=== PATIENT | female | born 1950 | race Caucasian/White ===

== ENCOUNTER → 2016-12-06 | Outpatient (REF) | payer MEDICARE, BC | LOC: M LAB REF 09:03 | PROVIDERS: ATTEND Physician Assistant | DX: H60.8X2 Other otitis externa, left ear (principal) ==

== ENCOUNTER 2020-04-25 21:01 | Observation (INO) | payer MEDICARE, BC ==
[~2020-04-25] VITALS: Ht 165.1 cm; Wt 56.8 kg
[2020-04-25] MEDS: traZODone 100 MG TAB PO SCH (21:00)
[2020-04-25] MEDS ORDERED: ATOR1TAB19 PO (21:20)
[2020-04-25] MEDS ORDERED: ATEN25TA PO (21:20)
[2020-04-25] MEDS ORDERED: TRAZ-257 PO (21:20)
[2020-04-25] MEDS ORDERED: AMLO2.5T3 PO (21:20)
[2020-04-25] MEDS ORDERED: VENL75TA2 PO (21:20)
[2020-04-25] MEDS ORDERED: ISOVUE-370 76% 100ML VIAL As Ordered ONE (22:59)
[2020-04-25 23:06] LABS: BASO # 0.1 10^3/uL (0.0-0.2); BASO % 0.7 % (0.0-1.0); EOS # 0.2 10^3/uL (0.0-0.5); EOS % 2.9 % (0.0-3.0); HEMATOCRIT 36.5 % (36.0-47.0); HEMOGLOBIN 11.8 g/dl (12.0-15.5); LYMPH # 1.4 10^3/uL (1.5-5.0); LYMPH % 18.9 % (24.0-44.0); MEAN CORPUSCULAR HEMOGLOBIN 30.5 pg (27.0-33.0); MEAN CORPUSCULAR HGB CONC 32.3 g/dl (32.0-36.5); MEAN CORPUSCULAR VOLUME 94.3 fl (80.0-96.0); MONO # 0.8 10^3/uL (0.0-0.8); MONO % 10.4 % (0.0-5.0); NEUTROPHILS # 4.8 10^3/uL (1.5-8.5); NEUTROPHILS % 66.8 % (36.0-66.0); PLATELET COUNT, AUTOMATED 297 10^3/uL (150-450); RED BLOOD COUNT 3.87 10^6/uL (4.00-5.40); WHITE BLOOD COUNT 7.2 10^3/uL (4.0-10.0)
--- NOTE | 2020-04-25 23:36 | REPVR ---
PROCEDURE INFORMATION: Exam: CT Head Without Contrast Exam date and time: 04/25/2020 10:25 PM Age: 70 years old Clinical indication: Injury or trauma; Fall; Concussion/head injury; Consciousness not specified; Additional info: Fall from horse, nausea TECHNIQUE: Imaging protocol: Computed tomography of the head without contrast. Radiation optimization: All CT scans at this facility use at least one of these dose optimization techniques: automated exposure control; mA and/or kV adjustment per patient size (includes targeted exams where dose is matched to clinical indication); or iterative reconstruction. COMPARISON: No relevant prior studies available. FINDINGS: Brain: Diffuse moderate cerebral age related volume loss. Moderate patchy low attenuation in the white matter compatible with moderate chronic small vessel ischemic disease. No midline shift, mass, fluid collection, or evidence of hemorrhage. Cerebral ventricles: Ventricular enlargement proportional to volume loss. Bones/joints: Unremarkable. No acute fracture. Paranasal sinuses: Visualized sinuses are unremarkable. No fluid levels. Mastoid air cells: Visualized mastoid air cells are well aerated. Soft tissues: Unremarkable. IMPRESSION: Moderate involutional changes, no acute intracranial abnormality. Electronically signed by: Yefri Louis On 04/25/2020 23:36:01 PM
--- NOTE | 2020-04-25 23:37 | REPVR ---
PROCEDURE INFORMATION: Exam: CT Cervical Spine Without Contrast Exam date and time: 04/25/2020 10:25 PM Age: 70 years old Clinical indication: Neck pain; Additional info: Fall from horse, nausea TECHNIQUE: Imaging protocol: Computed tomography images of the cervical spine without contrast. Radiation optimization: All CT scans at this facility use at least one of these dose optimization techniques: automated exposure control; mA and/or kV adjustment per patient size (includes targeted exams where dose is matched to clinical indication); or iterative reconstruction. COMPARISON: No relevant prior studies available. FINDINGS: Bones/joints: No acute fracture. Normal alignment. Discs/Spinal canal/Neural foramina: Degenerative disc and joint disease greatest at C3-C4 with moderate spinal and moderate to severe right greater than left foraminal stenosis. Soft tissues: Unremarkable. Lungs: Lung apices are normal. IMPRESSION: No acute findings. Electronically signed by: Yefri Louis On 04/25/2020 23:37:40 PM
[2020-04-25 23:40] LABS: ALBUMIN 3.9 GM/DL (3.2-5.2); ALT/SGPT 25 U/L (12-78); BILIRUBIN,DIRECT 0.1 MG/DL (0.0-0.2); BILIRUBIN,TOTAL 0.3 MG/DL (0.2-1.0); CK-MB VALUE MASS 1.3 NG/ML (<3.6); CPK CREATINE PHOSPHOKINASE 47 U/L (26-192); LIPASE 255 U/L (73-393); MB/CK RELATIVE INDEX 2.77 (< OR =4); TOTAL PROTEIN 7.4 GM/DL (6.4-8.2); TROPONIN I < 0.02 NG/ML (< 0.10)
--- NOTE | 2020-04-25 23:58 | REPVR ---
PROCEDURE INFORMATION: Exam: CT Abdomen And Pelvis With Contrast Exam date and time: 04/25/2020 10:25 PM Age: 70 years old Clinical indication: Injury or trauma; Fall; Blunt; Epigastric; Additional info: Nausea, vomiting, epigastric pain, lowback, left hip pain TECHNIQUE: Imaging protocol: Computed tomography of the abdomen and pelvis with intravenous contrast. Radiation optimization: All CT scans at this facility use at least one of these dose optimization techniques: automated exposure control; mA and/or kV adjustment per patient size (includes targeted exams where dose is matched to clinical indication); or iterative reconstruction. Contrast material: ISO; Contrast volume: 100 ml; Contrast route: INTRAVENOUS (IV); COMPARISON: No relevant prior studies available. FINDINGS: Mediastinal space: There is a small hiatal hernia. Liver: Small cyst in the dome of the liver. The liver is otherwise unremarkable. Gallbladder and bile ducts: Normal. No calcified stones. No ductal dilation. Pancreas: Normal. No ductal dilation. Spleen: Normal. No splenomegaly. Adrenal glands: Normal. No mass. Kidneys and ureters: Normal. No hydronephrosis. Stomach and bowel: There is colonic diverticulosis without evidence of diverticulitis. The small bowel is unremarkable. Appendix: No evidence of appendicitis. Intraperitoneal space: Unremarkable. No free air. No significant fluid collection. Vasculature: Unremarkable. No abdominal aortic aneurysm. Lymph nodes: Unremarkable. No enlarged lymph nodes. Urinary bladder: Unremarkable as visualized. Reproductive: There has been prior hysterectomy. Bones/joints: There are advanced degenerative changes in the spine and pelvis. Changes of prior left hip arthroplasty are noted. Nondisplaced fracture of the left sacral ala at the SI joint (image 74, series 202). No SI joint diastasis or ankylosis. Remainder of the sacrum appears to be intact. Soft tissues: Unremarkable. IMPRESSION: 1. Nondisplaced left sacral ala fracture. No other acute fractures or malalignment. 2. Advanced degenerative spondylosis. 3. Colonic diverticulosis without evidence of diverticulitis. 4. Small hiatal hernia. Electronically signed by: Chacho Mercedes On 04/25/2020 23:57:32 PM
[2020-04-26] MEDS ORDERED: NORCO, ANEXSIA 5/325MG TABLET (HYDROcodone/ACETAMINOPHEN) PO ONE (01:30)
[2020-04-26] MEDS ORDERED: ONDANSETRON 4MG/2ML VIAL IV ONE (01:30)
[2020-04-26] MEDS ORDERED: ASPI81TA26 PO (02:11)
--- NOTE | 2020-04-26 03:56 | HPEPDOC ---
[facility] Medical History & Physical Date of Admission Apr 26, 2020 Date of Service: Apr 26, 2020 History and Physical CHIEF COMPLAINT: Dizziness HISTORY OF PRESENT ILLNESS: 70-year-old female with a past medical history of hypertension presents to the ED with dizziness as well as epigastric pain and nausea/vomiting. Regarding her dizziness patient tells me that she fell off of her horse approximately 10 days ago onto her back and head and since that time she's been having intermittent dizziness on and off. Tells me that prior to the ED she was feeling very dizzy at home which prompted her to come in. At the time she was seen she tells me she's no longer feeling dizzy however she does still have associated gait instability that always follows her dizziness episodes and has not completely resolved. Tells me that she been able to walk to the bathroom unassisted with no trouble but not feeling completely normal Regarding her epigastric pain and associated nausea and vomiting patient tells me that she was taking some Aleve to alleviate her ongoing back pain since the fall and shortly after taking the Aleve is when she felt the onset of nausea vomiting and epigastric pain. Tells me that since then the epigastric pain has resolved and she is no longer nauseous nor has she vomited. In the ED CT head was done which was negative for acute pathology. CT abdomen/pelvis done was negative for acute pathology. She was given Zofran for the nausea/vomiting and Mary Alice for pain. Patient will be admitted to medical unit for observation PAST MEDICAL HISTORY: Hypertension PAST SURGICAL HISTORY: Left hip replacement 2013 Hysterectomy 2000 SOCIAL HISTORY: Drinks 1-2 glasses of wine every few days Denies tobacco use Denies illicit drug use FAMILY HISTORY: Reviewed and noncontributory ALLERGIES: Please see below. REVIEW OF SYSTEMS: 10 point review of systems complete all negative otherwise stated in HPI HOME MEDICATIONS: Please see below. PHYSICAL EXAMINATION: Constitutional: Awake and alert, in no apparent distress ENT: Sclera are clear. Mucosa is moist. Respiratory: Lungs CTA bilaterally. No respiratory distress. No use of accessory muscles. Cardiovascular: RRR S1 and S2 are normal, no murmur Gastrointestinal: Abdomen is soft, non distended, non tender, BS present. Musculoskeletal: No edema. No joint deformities. RUE 5/5, LUE 5/5, BLE 5/5 Neurologic: No focal neurological deficit. Mental Status: A&O x3, normal affect Skin: Warm, dry. Mild vesicular itchy rash around the right upper flank which patient tells me she's been following up with dermatology with no diagnosis yet. LABORATORY DATA: See below. IMAGING: MICROBIOLOGY: Please see below. ASSESSMENT/PLAN 70-year-old female history of hypertension here with some dizziness and nausea/vomiting suspect postconcussion syndrome. Had fall off of course 10 days ago. At this time dizziness has resolved so has the nausea and vomiting. Still has some gait instability. Admitted for observation and evaluation by physical therapy. # Suspect postconcussion syndrome: CT head negative. Recent fall on head 10 days ago. dizziness now resolved. Still with some gait instability, PT/OT eval. ED Dr Montanez spoke with Ortho communication analyst who recommended cane/walker at home, however he preferred the pt admitted for obs. # Nausea/vomiting: now resolved with zofran. onset after taking aleeve. Possible pill induced esophagitis. avoid NSAIDs. Protonix PO. CT abdomen/pelvis negative acute pathology, shows nondisplaced left sacral ala fracture. # nondisplaced left sacral ala fracture: Mary Alice when necessary for pain physical therapy. Consider consulting orthopedics. # Normocytic Anemia: hgb 11.8 on admit. unsure of last c-scope. Fu fecal occult. Fu ferritin, TIBC. # Hypertension: Continue home meds. Monitor and titrate # Hyperlipidemia: Continue statin. No history of CAD or CVA discontinued aspirin. # MDD: continue home meds # High TSH: fu free T4. # DVT prophylaxis: Lovenox A Yousef Hospitalist Vital Signs Vital Signs Date Time Temp Pulse Resp B/P (MAP) Pulse Ox O2 Delivery O2 Flow Rate FiO2 04/26/20 02:29 67 17 98 Room Air 04/26/20 01:58 166/90 04/25/20 21:02 97.6 Laboratory Data Labs 24H Laboratory Tests 2 04/25/20 22:38: Immature Granulocyte % (Auto) 0.3, Neutrophils (%) (Auto) 66.8H, Lymphocytes (%) (Auto) 18.9L, Monocytes (%) (Auto) 10.4H, Eosinophils (%) (Auto) 2.9, Basophils (%) (Auto) 0.7, Neutrophils # (Auto) 4.8, Lymphocytes # (Auto) 1.4L, Monocytes # (Auto) 0.8, Eosinophils # (Auto) 0.2, Basophils # (Auto) 0.1, Nucleated Red Blood Cells % (auto) 0.0, Total Bilirubin 0.3, Direct Bilirubin 0.1, Aspartate Amino Transf (AST/SGOT) 27, Alanine Aminotransferase (ALT/SGPT) 25, Alkaline Phosphatase 132H, Total Creatine Kinase 47, Creatine Kinase MB 1.3, Creatine Kinase MB Relative Index 2.77, Troponin I < 0.02, Total Protein 7.4, Albumin 3.9, Albumin/Globulin Ratio 1.1L, Lipase 255, Thyroid Stimulating Hormone (TSH) 5.320H 04/25/20 22:51: POC Glucose (Misc Panel) 98, POC Sodium (Misc Panel) 134L, POC Potassium (Misc Panel) 3.8, POC Chloride (Misc Panel) 101, POC Total CO2 (Misc Panel) 25.0, POC Blood Urea Nitrogen (Misc Panel 13, POC Ionized Calcium (Misc Panel) 4.8, POC Creatinine (Misc Panel) 0.9, POC Hematocrit (Misc Panel) 38.0 CBC/BMP Laboratory Tests 04/25/20 22:38 Home Medications Scheduled Amlodipine Besylate (Amlodipine Besylate) 2.5 Mg Tablet, 2.5 MG PO DAILY Aspirin (Aspirin EC) 81 Mg Tablet.dr, 81 MG PO DAILY Atenolol (Atenolol) 25 Mg Tablet, 25 MG PO DAILY Atorvastatin Calcium (Atorvastatin Calcium) 10 Mg Tablet, 10 MG PO DAILY Trazodone HCl (Trazodone HCl) 100 Mg Tablet, 200 MG PO QHS Venlafaxine HCl (Venlafaxine HCl) 75 Mg Tablet, 75 MG PO DAILY Allergies Coded Allergies: erythromycin base (Verified Allergy, Mild, SWELLING, 04/25/20) sulfamethoxazole (Verified Allergy, Mild, SWELLING & NAUSEA, 04/25/20) trimethoprim (Verified Allergy, Mild, SWELLING & NAUSEA, 04/25/20) A-FIB/CHADSVASC A-FIB History Current/History of A-Fib/PAF?: No CHINO NEWTON MD Apr 26, 2020 03:56
[2020-04-26] MEDS ORDERED: PILL CUTTER 1 EACH XX PRN (04:00)
[2020-04-26] MEDS ORDERED: MOM 30ML SUSPENSION UDC PO PRN (04:00)
[2020-04-26] MEDS ORDERED: ACETAMINOPHEN TAB 650MG DOSE (2X325MG) PO PRN (04:00)
[2020-04-26] MEDS ORDERED: NORCO, ANEXSIA 5/325MG TABLET (HYDROcodone/ACETAMINOPHEN) PO PRN (04:15)
[2020-04-26] MEDS ORDERED: diazePAM 2 MG TAB PO ONE (05:15)
[2020-04-26 07:21] LABS: HEMATOCRIT 34.8 % (36.0-47.0); HEMOGLOBIN 11.6 g/dl (12.0-15.5); MEAN CORPUSCULAR HEMOGLOBIN 30.9 pg (27.0-33.0); MEAN CORPUSCULAR HGB CONC 33.3 g/dl (32.0-36.5); MEAN CORPUSCULAR VOLUME 92.8 fl (80.0-96.0); PLATELET COUNT, AUTOMATED 293 10^3/uL (150-450); RED BLOOD COUNT 3.75 10^6/uL (4.00-5.40); WHITE BLOOD COUNT 5.3 10^3/uL (4.0-10.0)
[2020-04-26 08:06] LABS: BLOOD UREA NITROGEN 10 MG/DL (7-18); CALCIUM LEVEL 8.8 MG/DL (8.8-10.2); CARBON DIOXIDE LEVEL 27 MEQ/L (21-32); CHLORIDE LEVEL 106 MEQ/L (98-107); CREATININE FOR GFR 0.87 MG/DL (0.55-1.30); FERRITIN 54 NG/ML (8-252); FREE T4 0.94 NG/DL (0.76-1.46); GLOMERULAR FILTRATION RATE > 60.0 (>39); GLUCOSE, FASTING 88 MG/DL (70-100); IRON (FE) 48 UG/DL (50-170); PERCENT SATURATION 16.7 % (13.2-45.0); POTASSIUM SERUM 4.3 MEQ/L (3.5-5.1); SODIUM LEVEL 140 MEQ/L (136-145); TOTAL IRON BINDING CAPACITY 288 UG/DL (250-450)
[2020-04-26 08:31] VITALS: BP 140/70
[2020-04-26] MEDS: VENLAFAXINE 37.5 MG TAB PO SCH (09:42)
[2020-04-26] MEDS: ATORVASTATIN 10 MG TAB PO SCH (09:43)
[2020-04-26] MEDS: PANTOPRAZOLE 20 MG TAB PO SCH (09:43)
[2020-04-26] MEDS: DOCUSATE SODIUM 100 MG CAP PO SCH ×2 (09:43→21:02)
[2020-04-26] MEDS: atenoloL 25 MG TAB PO SCH (09:43)
[2020-04-26] MEDS: HEPARIN SOD (PORCINE) 5000UNITS/ML 1ML VIAL/SYRINGE SC SCH ×3 (09:44→21:03)
[2020-04-26] MEDS: ONDANSETRON 4MG/2ML VIAL IV PRN ×2 (10:38→21:02)
[2020-04-26 15:30] VITALS: BP 136/68
--- NOTE | 2020-04-26 21:01 | IPNPDOC ---
Subjective Date Seen The patient was seen on 04/26/20. Subjective Chief Complaint/HPI Ms. Nicole is a 70 year old female with hypertension who is here for vertigo secondary to post concussion syndrome from falling off her horse about 10 days ago. Today, she still has the vertigo. Denies fever/chills, chest pain, dyspnea, or dysuria. Objective Physical Examination General Exam: Positive: Alert, Cooperative Eye Exam: Positive: EOMI; Negative: Sclera icteric ENT Exam: Positive: Mucous membr. moist/pink Neck Exam: Negative: thyromegaly Chest Exam: Positive: Clear to auscultation; Negative: Rales, Rhonchi, Wheezing Heart Exam: Positive: Rate Normal, Regular Rhythm Abdomen Exam: Positive: Normal bowel sounds, Soft Extremity Exam: Negative: Edema Skin Exam: Positive: Nl turgor and temperature Neuro Exam: Positive: Cranial Nerves 3-12 NL Psych Exam: Positive: Mental status NL, Mood NL Assessment /Plan Assessment Ms. Nicole is a 70 year old female with hypertension who is here for vertigo secondary to postconcussion syndrome from falling off her horse about 10 days ago. She still has a some vertigo. PT recommended outpatient vestibular physical therapy and a rolling walker. Plan/VTE VTE Prophylaxis Ordered?: Yes Plan 1. Post concussion syndrome -Fell off horse 10 days ago -PT/OT eval -Rolling walker and outpatient vestibular rehab 2. N/V -Secondary to vertigo from post concussion syndrome -PRN zofran 3. Nondisplaced left sacral ala fracture -PT and Walker 4. Hypertension -Continue amlodipine and atenolol 5. Hyperlipidemia -Continue statin 6. DVT ppx -[facility]ital Signs/I&O Vital Signs Date Time Temp Pulse Resp B/P (MAP) Pulse Ox O2 Delivery O2 Flow Rate FiO2 04/26/20 15:30 98.7 60 16 136/68 (90) 98 Room Air Laboratory Data 24H LABS Laboratory Tests 2 04/25/20 22:38: Immature Granulocyte % (Auto) 0.3, Neutrophils (%) (Auto) 66.8H, Lymphocytes (%) (Auto) 18.9L, Monocytes (%) (Auto) 10.4H, Eosinophils (%) (Auto) 2.9, Basophils (%) (Auto) 0.7, Neutrophils # (Auto) 4.8, Lymphocytes # (Auto) 1.4L, Monocytes # (Auto) 0.8, Eosinophils # (Auto) 0.2, Basophils # (Auto) 0.1, Nucleated Red Blood Cells % (auto) 0.0, Total Bilirubin 0.3, Direct Bilirubin 0.1, Aspartate Amino Transf (AST/SGOT) 27, Alanine Aminotransferase (ALT/SGPT) 25, Alkaline Phosphatase 132H, Total Creatine Kinase 47, Creatine Kinase MB 1.3, Creatine Kinase MB Relative Index 2.77, Troponin I < 0.02, Total Protein 7.4, Albumin 3.9, Albumin/Globulin Ratio 1.1L, Lipase 255, Thyroid Stimulating Hormone (TSH) 5.320H 04/25/20 22:51: POC Glucose (Misc Panel) 98, POC Sodium (Misc Panel) 134L, POC Potassium (Misc Panel) 3.8, POC Chloride (Misc Panel) 101, POC Total CO2 (Misc Panel) 25.0, POC Blood Urea Nitrogen (Misc Panel 13, POC Ionized Calcium (Misc Panel) 4.8, POC Creatinine (Misc Panel) 0.9, POC Hematocrit (Misc Panel) 38.0 04/26/20 07:10: Nucleated Red Blood Cells % (auto) 0.0, Anion Gap 7L, Glomerular Filtration Rate > 60.0, Calcium Level 8.8, Iron Level 48L, Total Iron Binding Capacity 288, Transferrin % Saturation 16.7, Ferritin 54, Free Thyroxine 0.94 CBC/BMP Laboratory Tests 04/25/20 22:38 04/26/20 07:10 SID GRIGGS DO Apr 26, 2020 21:01
[2020-04-26] MEDS: traZODone 100 MG TAB PO SCH (21:03)
[2020-04-26 22:00] VITALS: BP 156/78
[2020-04-27] MEDS: HEPARIN SOD (PORCINE) 5000UNITS/ML 1ML VIAL/SYRINGE SC SCH (05:08)
--- NOTE | 2020-04-27 05:39 | ECGEPIP ---
[facility] - ED Test Date: 2020-04-25 Pat Name: MICKIE POWELL Department: Room: [place] [address] Gender: Female Community Health Worker: jeanette : 1950 Requested By: WILL Miranda Order Number: [id number] Reading MD: Bhupinder Saenz Measurements Intervals [place] Rate: 53 P: -5 MI: 151 QRS: 15 QRSD: 142 T: -7 QT: 476 QTc: 449 Interpretive Statements SINUS BRADYCARDIA INTRAVENTRICULAR CONDUCTION DELAY NO PRIORS FOR COMPARISON Electronically Signed on 04-27-2020 5:39:25 EST by Bhupinder Saenz
[2020-04-27 06:00] VITALS: BP 125/64
[2020-04-27 08:02] VITALS: BP 144/74
[2020-04-27 08:05] VITALS: BP 144/74
[2020-04-27] MEDS: VENLAFAXINE 37.5 MG TAB PO SCH (08:05)
[2020-04-27] MEDS: ATORVASTATIN 10 MG TAB PO SCH (08:05)
[2020-04-27] MEDS: DOCUSATE SODIUM 100 MG CAP PO SCH (08:05)
[2020-04-27] MEDS: atenoloL 25 MG TAB PO SCH (08:05)
[2020-04-27] MEDS: PANTOPRAZOLE 20 MG TAB PO SCH (08:08)
[2020-04-27] MEDS ORDERED: ACET-897 PO (11:12)
[2020-04-27] MEDS ORDERED: DOCU100C16 PO (11:12)
[2020-04-27] MEDS ORDERED: CORTCRE TOP (11:12)
[2020-04-27] MEDS ORDERED: ONDA4TAB6 PO (11:12)
[2020-04-27] MEDS ORDERED: VOLT1GEL15 TOP (11:12)
--- NOTE | 2020-04-27 17:47 | ECGEPIP ---
[facility] Test Date: 2020-04-26 Pat Name: MICKIE POWELL Department: Room: [place] [address] Gender: Female Plastic Molding Operator: CHAYITO : 1950 Requested By: SID Hollingsworth Order Number: [id number] Reading MD: Yefri Montanez Measurements Intervals [place] Rate: 57 P: -7 MI: 152 QRS: 24 QRSD: 137 T: 10 QT: 452 QTc: 441 Interpretive Statements SINUS BRADYCARDIA RIGHT BUNDLE BRANCH BLOCK Nonspecific ST-T wave abnormalities Similar to tracing done 04-25-20 Electronically Signed on 04-27-2020 17:47:26 EST by Yefri Montanez
--- NOTE | 2020-04-27 23:25 | DS.PDOC ---
Discharge Summary General Date of Admission Apr 25, 2020 at 21:02 Date of Discharge Apr 27, 2020 Attending Physician: SID GRIGGS DO Discharge Summary PROCEDURES PERFORMED DURING STAY: None ADMITTING DIAGNOSES: 1. Post concussion syndrome 2. Vertigo with nausea/vomiting 3. Nondisplaced left sacral ala fracture 4. Hypertension 5. Hyperlipidemia DISCHARGE DIAGNOSES: 1. Post concussion syndrome 2. Vertigo with nausea/vomiting 3. Nondisplaced left sacral ala fracture 4. Hypertension 5. Hyperlipidemia COMPLICATIONS/CHIEF COMPLAINT: Concussion, Sacral Fracture, Vertigo. HISTORY OF PRESENT ILLNESS: Ms. Nicole is a 70-year-old female with hyperten deisy who is here with dizziness with nausea/vomiting. She recently fell off her horse about 10 days prior to admission and landed on her back. Since then she has been having intermittent vertigo on and off. She has gait instability due to her vertigo. CT head was performed which was negative for acute pathology. Patient will be admitted to medical unit for observation HOSPITAL COURSE: During her hospitalization, she worked with physical therapy. Recommended rolling walker and outpatient vestibular rehab. She still has the vertigo, but it is improved. Touched base with orthopedics, Dr. Leach. He recommended that she follow up with him outpatient within 5 days. Today, she felt well and was subsequently discharged DISCHARGE MEDICATIONS: Please see below. ALLERGIES: Please see below. PHYSICAL EXAMINATION ON DISCHARGE: VITAL SIGNS: Please see below. GENERAL: Comfortable, in no apparent distress HEENT: Head normocephalic, atraumatic, EOMI, Sclera clear NECK: Supple CARDIOVASCULAR EXAMINATION: Regular rate and rhythm RESPIRATORY EXAMINATION: Lung clear to auscultation bilaterally ABDOMINAL EXAMINATION: Soft, non-tender, normal bowel sounds EXTREMITIES: No pitting edema NEUROLOGICAL EXAMINATION: CN 3-12 grossly intact PSYCHIATRIC EXAMINATION: Normal mood and affect LABORATORY DATA: Please see below. IMAGING: CT head Moderate involutional changes, no acute intracranial abnormality. CT cervical spine No acute findings. CT abd/pelvis 1. Nondisplaced left sacral ala fracture. No other acute fractures or malalignment. 2. Advanced degenerative spondylosis. 3. Colonic diverticulosis without evidence of diverticulitis. 4. Small hiatal hernia. PROGNOSIS: Stable ACTIVITY: Rolling walker. DIET: As tolerated DISCHARGE PLAN: Home DISPOSITION: Home, Self-Care. DISCHARGE INSTRUCTIONS: 1. Follow up with your PCP within 5 day 2. Follow up with orthopedics, Dr. Leach, within 5 days DISCHARGE CONDITION: Stable. Total time spent on discharge planning, discharge summary, and medication reconciliation: 35 mins Vital Signs/I&Os Vital Signs Date Time Temp Pulse Resp B/P (MAP) Pulse Ox O2 Delivery O2 Flow Rate FiO2 04/27/20 08:05 64 144/74 04/27/20 08:02 97.5 18 Room Air 04/27/20 06:00 95 I&O- Last 24 Hours up to 6 AM 04/27/20 05:59 Intake Total 600 ml Output Total 0 ml Balance 600 ml Discharge Medications Scheduled Amlodipine Besylate (Amlodipine Besylate) 2.5 Mg Tablet, 2.5 MG PO DAILY, (Reported) Aspirin (Aspirin EC) 81 Mg Tablet.dr, 81 MG PO DAILY, (Reported) Atenolol (Atenolol) 25 Mg Tablet, 25 MG PO DAILY, (Reported) Atorvastatin Calcium (Atorvastatin Calcium) 10 Mg Tablet, 10 MG PO DAILY, (Reported) Docusate Sodium (Docusate Sodium) 100 Mg Capsule, 100 MG PO BID Trazodone HCl (Trazodone HCl) 100 Mg Tablet, 200 MG PO QHS, (Reported) Venlafaxine HCl (Venlafaxine HCl) 75 Mg Tablet, 75 MG PO DAILY, (Reported) Scheduled PRN Acetaminophen (Tylenol Extra Strength) 500 Mg Tablet, 500 MG PO Q4HP PRN for PAIN OR FEVER Diclofenac Sodium (Voltaren) 100 Gm Gel..gram., 1 GRAM TOP QIDP PRN for pain apply to affected area(s) Hydrocortisone (Cortizone-10) 1% 28GM Cream..g., 1 GM TOP BID PRN for PRURITIS Ondansetron (Ondansetron Odt) 4 Mg Tab.rapdis, 4 MG PO Q6-8HP PRN for nausea/v omiting Allergies Coded Allergies: erythromycin base (Verified Allergy, Mild, SWELLING, 04/25/20) sulfamethoxazole (Verified Allergy, Mild, SWELLING & NAUSEA, 04/25/20) trimethoprim (Verified Allergy, Mild, SWELLING & NAUSEA, 04/25/20) SID GRIGGS DO Apr 27, 2020 23:24
== END 2020-04-27 12:00 | disposition home or self-care (01) ==
LOC: M ED 21:01 → M ED INP 21:02 → M MS5PR 04-26 07:56
PROVIDERS: ADMIT Family Medicine; ATTEND Family Medicine
DX: F07.81 Postconcussional syndrome (principal); R42 Dizziness and giddiness; R11.2 Nausea with vomiting, unspecified; S32.110A Nondisplaced Zone I fracture of sacrum, initial encounter for closed fracture; V80.010A Animal-rider injured by fall from or being thrown from horse in noncollision accident, initial encounter; Y92.89 Other specified places as the place of occurrence of the external cause; Y93.52 Activity, horseback riding; Y99.9 Unspecified external cause status; I10 Essential (primary) hypertension; E78.49 Other hyperlipidemia; F32.9 Major depressive disorder, single episode, unspecified; Z79.82 Long term (current) use of aspirin; Z79.899 Other long term (current) drug therapy; Z88.1 Allergy status to other antibiotic agents; Z88.8 Allergy status to other drugs, medicaments and biological substances; D64.9 Anemia, unspecified
CPT/HCPCS: 36415; 70450; 72125; 74177; 80047; 80048; 80076; 82550; 82553; 82728; 83550; 83690; 84439; 84443; 84484; 85025; 85027; 93005; 93041; 94760; 96372; 96374; 96376; 97161; 99285; G0378; J1644; J2405; Q9967

== ENCOUNTER → 2020-10-21 | Outpatient (REF) | payer MEDICARE, BC ==
[~2020-10-21] MED LIST: ACET-897 PO; AMLO2.5T3 PO; ASPI81TA26 PO; ATEN25TA PO; ATOR1TAB19 PO; CORTCRE TOP; DOCU100C16 PO; ONDA4TAB6 PO; TRAZ-257 PO; VENL75TA2 PO; VOLT1GEL15 TOP
[2020-10-21 12:31] LABS: BASO # 0.1 10^3/uL (0.0-0.2); BASO % 1.8 % (0.0-1.0); EOS # 0.2 10^3/uL (0.0-0.5); EOS % 3.9 % (0.0-3.0); HEMATOCRIT 36.9 % (36.0-47.0); HEMOGLOBIN 11.8 g/dl (12.0-15.5); LYMPH # 1.5 10^3/uL (1.5-5.0); LYMPH % 34.7 % (24.0-44.0); MEAN CORPUSCULAR HEMOGLOBIN 30.6 pg (27.0-33.0); MEAN CORPUSCULAR VOLUME 95.6 fl (80.0-96.0); MONO # 0.6 10^3/uL (0.0-0.8); MONO % 12.8 % (2.0-8.0); NEUTROPHILS % 46.1 % (36.0-66.0); PLATELET COUNT, AUTOMATED 239 10^3/uL (150-450); RED BLOOD COUNT 3.86 10^6/uL (4.00-5.40); WHITE BLOOD COUNT 4.4 10^3/uL (4.0-10.0)
[2020-10-21 13:04] LABS: ALBUMIN 3.7 GM/DL (3.2-5.2); ALT/SGPT 23 U/L (12-78); BILIRUBIN,TOTAL 0.3 MG/DL (0.2-1.0); BLOOD UREA NITROGEN 14 MG/DL (7-18); CALCIUM LEVEL 9.3 MG/DL (8.8-10.2); CARBON DIOXIDE LEVEL 30 MEQ/L (21-32); CHLORIDE LEVEL 107 MEQ/L (98-107); CHOLESTEROL LEVEL 243 MG/DL (<200); CHOLESTEROL RISK RATIO 2.382 (<5); CREATININE FOR GFR 0.81 MG/DL (0.55-1.30); GLOMERULAR FILTRATION RATE > 60.0 (>39); GLUCOSE, FASTING 81 MG/DL (70-100); HDL CHOLESTEROL 102 MG/DL (>40); LDL CHOLESTEROL 116 MG/DL (<100); NON-HDL-C 141 MG/DL; POTASSIUM SERUM 4.7 MEQ/L (3.5-5.1); SODIUM LEVEL 142 MEQ/L (136-145); TRIGLYCERIDES LEVEL 124 MG/DL (<150)
== END ==
LOC: M LAB REF 11:33
PROVIDERS: ATTEND Pediatrics
DX: I10 Essential (primary) hypertension (principal); E78.5 Hyperlipidemia, unspecified; J30.9 Allergic rhinitis, unspecified; M85.80 Other specified disorders of bone density and structure, unspecified site; Z86.39 Personal history of other endocrine, nutritional and metabolic disease

== ENCOUNTER → 2020-11-13 | Outpatient (CLI) | payer MEDICARE, BC ==
--- NOTE | 2020-11-13 10:03 | REP ---
INDICATION: FAM HX OF AAA COMPARISON: None. TECHNIQUE: Real time ilnares scale ultrasound examination using curved array transducer. FINDINGS: The abdominal aorta demonstrates mild atheromatous plaquing without evidence for aneurysm. Proximal aorta: 2.3 x 2.2 cm Aorta at renal arteries: 1.6 x 1.5 cm Mid aorta: 1.5 x 1.6 cm Distal aorta: 1.4 x 1.5 cm Right common iliac artery: 0.9 x 1.0 cm Left common iliac artery: 0.9 x 1.0 cm IMPRESSION: Mild atheromatous plaquing. No aneurysm. <Electronically signed by Christian Guallpa > 11/13/20 [id number]
== END ==
LOC: M RAD 08:45
PROVIDERS: ATTEND Pediatrics
DX: I70.0 Atherosclerosis of aorta (principal); Z82.49 Family history of ischemic heart disease and other diseases of the circulatory system

== ENCOUNTER → 2020-11-26 | Outpatient (CLI) | payer MEDICARE, BC ==
--- NOTE | 2020-11-26 11:57 | REP ---
INDICATION: SCREENING FOR MALIGNANT NEOPLASM. COMPARISON: None. TECHNIQUE: Axial noncontrast images from the thoracic inlet to the upper abdomen using low-dose lung screening technique (LDCT). As per the protocol only lung window images were sent to the read station for interpretation FINDINGS: There is mild biapical pleuroparenchymal scarring. Mild patchy ground-glass opacities are seen in the left lower lobe. There is mild cylindrical bronchiectasis. There are multiple subpleural nodular density seen in the right lung base the largest measures 10 mm. Grossly the mediastinum and pulmonary collins are within normal limits. Grossly the imaged upper abdomen and imaged osseous structures are within normal limits. There is no evidence of a pleural or pericardial effusion. IMPRESSION: 1. Mild patchy ground-glass opacities in the left lower lobe etiology uncertain. Since are no priors comparison short interval follow-up is recommended. There is no revised Fleischner society criteria on the recommendation for follow-up of such findings. These were not present to this degree on the prior lung base images obtained during abdominal and pelvic CT scanning of 04/25/2020. 2. Multiple right lower lobe subpleural nodular densities as described above. Three-month follow-up chest CT is recommended. Lung rads category 4B. 3. Other findings as described above. Sign rib <Electronically signed by Nagi Leyva > 11/26/20 [id number]
== END ==
LOC: M RAD 10:58
PROVIDERS: ATTEND Pediatrics
DX: R91.8 Other nonspecific abnormal finding of lung field (principal); J92.9 Pleural plaque without asbestos; J47.9 Bronchiectasis, uncomplicated; Z82.49 Family history of ischemic heart disease and other diseases of the circulatory system; Z12.2 Encounter for screening for malignant neoplasm of respiratory organs

== ENCOUNTER → 2021-01-13 | Outpatient (CLI) | payer MEDICARE, BC ==
[2021-01-13 15:47] LABS: IMMUNOGLOBULIN M 65.3 MG/DL (40-230)
== END ==
LOC: M LAB 14:23
PROVIDERS: ATTEND Internal Medicine Pulmonary Disease
DX: R91.8 Other nonspecific abnormal finding of lung field (principal)

== ENCOUNTER → 2021-03-11 | Outpatient (CLI) | payer MEDICARE, BC ==
--- NOTE | 2021-03-11 11:43 | REP ---
INDICATION: ABN FINDINGS OF LUNG FIELD COMPARISON: 11/26/2020 the only prior low-dose screening CT of the lungs TECHNIQUE: Standard helical technique without intravenous contrast administration FINDINGS: The mediastinum and pulmonary collins are within normal limits. There is no evidence of a mass or adenopathy. There are no pleural or pericardial effusions. The imaged upper abdomen is within normal limits. Bone window technique throughout the examination shows a grade 1 superior endplate compression deformity of T6. The age of this cannot be determined by this exam. Evaluation of the lung solorzano shows persistence of patchy ground-glass opacities in the left lower lobe. There are bibasilar curvilinear densities. These are stable. There are multiple right lower lobe posterior subpleural nodules which are stable. There is cylindrical bronchiectasis status quo. No new abnormal nodules, masses, or opacities have developed. IMPRESSION: Stable CT findings as described above. The ground-glass opacities in the left lower lobe suggest fibrotic and/or subsegmental atelectatic changes. The subpleural nodular densities in the right lower lobe now represent category 2 lesions which according to the revised Fleischner society criteria can be followed in 1 year. <Electronically signed by Nagi Leyva > 03/11/21 [id number]
== END ==
LOC: M PLAIMG 10:52
PROVIDERS: ATTEND Internal Medicine Pulmonary Disease
DX: R91.8 Other nonspecific abnormal finding of lung field (principal); J47.9 Bronchiectasis, uncomplicated; M48.54XA Collapsed vertebra, not elsewhere classified, thoracic region, initial encounter for fracture

== ENCOUNTER → 2021-11-10 | Outpatient (CLI) | payer MEDICARE, BC ==
[~2021-11-10] MED LIST changes: +METHACHOLINE KIT (J7674) INH ONE
== END ==
LOC: M CARPUL 10:58
PROVIDERS: ATTEND Internal Medicine Pulmonary Disease
DX: J47.9 Bronchiectasis, uncomplicated (principal)
CPT/HCPCS: 94070; 95070; J7674

== ENCOUNTER → 2021-11-17 | Outpatient (CLI) | payer MEDICARE, BC ==
[~2021-11-17] MED LIST changes: -METHACHOLINE KIT (J7674) INH ONE
== END ==
LOC: M PLAIMG 12:56
PROVIDERS: ATTEND Internal Medicine Pulmonary Disease
DX: R91.8 Other nonspecific abnormal finding of lung field (principal); J98.11 Atelectasis; J47.9 Bronchiectasis, uncomplicated; I25.10 Atherosclerotic heart disease of native coronary artery without angina pectoris; I70.0 Atherosclerosis of aorta; M85.89 Other specified disorders of bone density and structure, multiple sites; R59.0 Localized enlarged lymph nodes

== ENCOUNTER → 2021-11-30 | Outpatient (CLI) | payer MEDICARE, BC | LOC: M WHC 13:45 | PROVIDERS: ATTEND Pediatrics | DX: M85.851 Other specified disorders of bone density and structure, right thigh (principal) ==

== ENCOUNTER → 2022-11-16 | Outpatient (REF) | payer MEDICARE, BC | LOC: M LAB REF 13:01 | PROVIDERS: ATTEND Pediatrics | DX: R30.9 Painful micturition, unspecified (principal) ==

== ENCOUNTER → 2023-01-13 | Outpatient (REF) | payer MEDICARE, BC ==
[2023-01-13 18:15] LABS: BASO # 0.1 10^3/uL (0.0-0.2); BASO % 1.4 % (0.0-1.0); EOS # 0.1 10^3/uL (0.0-0.5); HEMATOCRIT 36.8 % (36.0-47.0); HEMOGLOBIN 12.1 g/dl (12.0-15.5); LYMPH # 1.8 10^3/uL (1.5-5.0); LYMPH % 35.2 % (24.0-44.0); MEAN CORPUSCULAR HEMOGLOBIN 31.1 pg (27.0-33.0); MEAN CORPUSCULAR HGB CONC 32.9 g/dl (32.0-36.5); MEAN CORPUSCULAR VOLUME 94.6 fl (80.0-96.0); MONO # 0.6 10^3/uL (0.0-0.8); MONO % 11.4 % (2.0-8.0); NEUTROPHILS # 2.5 10^3/uL (1.5-8.5); NEUTROPHILS % 49.6 % (36.0-66.0); PLATELET COUNT, AUTOMATED 266 10^3/uL (150-450); RED BLOOD COUNT 3.89 10^6/uL (4.00-5.40)
[2023-01-13 18:49] LABS: ALBUMIN 3.9 G/DL (3.2-5.2); ALKALINE PHOSPHATASE 81 U/L (46-116); ALT/SGPT 20 U/L (7.0-40); AST/SGOT 16 U/L (<34); BILIRUBIN,TOTAL 0.4 MG/DL (0.3-1.2); BLOOD UREA NITROGEN 13 MG/DL (9-23); CALCIUM LEVEL 9.5 MG/DL (8.3-10.6); CARBON DIOXIDE LEVEL 28 MMOL/L (20-31); CHLORIDE LEVEL 101 MMOL/L (98-107); CHOLESTEROL LEVEL 216 MG/DL (<200); CREATININE FOR GFR 0.83 MG/DL (0.55-1.30); GLOMERULAR FILTRATION RATE > 60.0 (>39); GLUCOSE, FASTING 79 MG/DL (74-106); HDL CHOLESTEROL 98.1 MG/DL (>40); LDL CHOLESTEROL 94.9 MG/DL (<100); NON-HDL-C 117.9 MG/DL; POTASSIUM SERUM 4.9 MMOL/L (3.5-5.1); SODIUM LEVEL 138 MMOL/L (136-145); THYROID STIMULATING HORMONE 3.277 uIU/ML (0.55-4.78); TOTAL PROTEIN 7.1 G/DL (5.7-8.2); TRIGLYCERIDES LEVEL 115 MG/DL (<150)
== END ==
LOC: M LAB REF 17:36
PROVIDERS: ATTEND Pediatrics
DX: E78.5 Hyperlipidemia, unspecified (principal); I10 Essential (primary) hypertension

== ENCOUNTER → 2023-03-25 | Outpatient (REF) | payer MEDICARE, BC | LOC: M LAB REF 16:12 | PROVIDERS: ATTEND Pediatrics | DX: R30.9 Painful micturition, unspecified (principal) ==

== ENCOUNTER → 2023-07-19 | Outpatient (REF) | payer MEDICARE, BC ==
[2023-07-19 13:58] LABS: BLOOD UREA NITROGEN 10 MG/DL (9-23); CALCIUM LEVEL 9.2 MG/DL (8.3-10.6); CARBON DIOXIDE LEVEL 27 MMOL/L (20-31); CHLORIDE LEVEL 104 MMOL/L (98-107); CREATININE FOR GFR 0.75 MG/DL (0.55-1.30); GLOMERULAR FILTRATION RATE > 60.0 (>39); GLUCOSE, FASTING 78 MG/DL (74-106); POTASSIUM SERUM 4.7 MMOL/L (3.5-5.1); SODIUM LEVEL 136 MMOL/L (136-145)
[2023-07-19 14:01] LABS: THYROID STIMULATING HORMONE 3.443 uIU/ML (0.55-4.78)
== END ==
LOC: M LAB REF 12:29
PROVIDERS: ATTEND Pediatrics
DX: I10 Essential (primary) hypertension (principal); E78.5 Hyperlipidemia, unspecified

== ENCOUNTER → 2024-03-27 | Outpatient (REF) | payer MEDICARE, BC ==
[~2024-03-27] MED LIST changes: -CORTCRE TOP; +HYDR28CR42 TOP; +ONDA-282 PO; -ONDA4TAB6 PO
[2024-03-27 16:56] LABS: ALBUMIN 3.9 G/DL (3.2-5.2); ALKALINE PHOSPHATASE 89 U/L (46-116); ALT/SGPT 16 U/L (7.0-40); AST/SGOT 17 U/L (<34); BILIRUBIN,TOTAL 0.4 MG/DL (0.3-1.2); BLOOD UREA NITROGEN 12 MG/DL (9-23); CALCIUM LEVEL 9.9 MG/DL (8.3-10.6); CARBON DIOXIDE LEVEL 29 MMOL/L (20-31); CHLORIDE LEVEL 102 MMOL/L (98-107); CHOLESTEROL LEVEL 215 MG/DL (<200); CHOLESTEROL RISK RATIO 2.07 (<5); GLOMERULAR FILTRATION RATE > 60.0 (>39); GLUCOSE, FASTING 82 MG/DL (74-106); HDL CHOLESTEROL 103.4 MG/DL (>40); LDL CHOLESTEROL 97.8 MG/DL (<100); NON-HDL-C 111.6 MG/DL; POTASSIUM SERUM 4.8 MMOL/L (3.5-5.1); SODIUM LEVEL 138 MMOL/L (136-145); TOTAL PROTEIN 7.2 G/DL (5.7-8.2); TRIGLYCERIDES LEVEL 69 MG/DL (<150)
[2024-03-27 16:57] LABS: THYROID STIMULATING HORMONE 3.374 uIU/ML (0.55-4.78)
[2024-03-27 16:58] LABS: TOTAL 25(OH) VITAMIN D 39.1 NG/ML (20.0-100.0)
[2024-03-27 17:24] LABS: CREATININE, URINE 251.8 MG/DL; MAU/CREAT RATIO 1.5 MCG/MG (0.0-30.0)
== END ==
LOC: M LAB REF 16:05
PROVIDERS: ATTEND Pediatrics
DX: I10 Essential (primary) hypertension (principal); E78.5 Hyperlipidemia, unspecified; M85.80 Other specified disorders of bone density and structure, unspecified site

== ENCOUNTER → 2024-08-06 | Outpatient (REF) | payer MEDICARE, BC ==
[2024-08-06 17:11] LABS: ALBUMIN 3.8 G/DL (3.2-5.2); BILIRUBIN,DIRECT 0.1 MG/DL (<0.4); BILIRUBIN,TOTAL 0.4 MG/DL (0.3-1.2); TOTAL PROTEIN 7.4 G/DL (5.7-8.2)
== END ==
LOC: M LAB REF 16:05
PROVIDERS: ATTEND Pediatrics
DX: R20.8 Other disturbances of skin sensation (principal); Z76.89 Persons encountering health services in other specified circumstances

== ENCOUNTER → 2025-01-22 | Outpatient (REF) | payer MEDICARE, BC | LOC: M LAB REF 16:20 | PROVIDERS: ATTEND Pediatrics | DX: R35.0 Frequency of micturition (principal) ==